=== PATIENT | male | born 1960 | race Caucasian/White ===

== ENCOUNTER 2017-01-19 09:27 | Emergency (ER) | payer OTHER ==
[~2017-01-19 09:27] MED LIST: CELEXA20 M2 PO; CLONAZEPAM1 M2 PO; COMPAZINE10 M PO; EQL FISH OIL 1,1 CA1 PO; GLUCOPHAGE1000 M1 PO; KLONOPIN1 M1 PO; LISINOPRIL10 MG PO; LOSARTAN; LOSARTAN POTASS25 M1 PO; METFORMIN; NOVOLOG MI100 UNITS/ SC; SIMVASTATIN; SIMVASTATIN20 M1 PO; ZOFRAN ODT4 MG/UDTAB PO; [UNRECOGNIZED DRUG - REMARK]
[2017-01-19] MEDS ORDERED: JANUMET XR 50-1 EAC3 PO (09:46)
[2017-01-19] MEDS ORDERED: WELLBUTRIN XL150 M1 PO (09:47)
[2017-01-19] MEDS ORDERED: CEPHALEXIN500 M1 PO (09:56)
== END 2017-01-19 10:31 ==
LOC: EDMED 09:27
DX: L03.115 Cellulitis of right lower limb (principal); E11.9 Type 2 diabetes mellitus without complications; I10 Essential (primary) hypertension; Z79.4 Long term (current) use of insulin

== ENCOUNTER 2017-01-22 10:33 | Inpatient (IN) | payer OTHER ==
[~2017-01-22 10:33] MED LIST changes: +CEPHALEXIN500 M1 PO; +JANUMET XR 50-1 EAC3 PO; +WELLBUTRIN XL150 M1 PO
[2017-01-22 12:15] LABS: BASO % 0.3 % (0-2); EOS % 1.3 % (0-7); EOSINOPHIL ABSOLUTE COUNT 0.2 tho/cmm (0.0-0.7); HCT-HEMATOCRIT 38.7 % (36.0-53.5); HGB-HEMOGLOBIN 13.7 gm/dl (13.5-17.0); IMMATURE GRANULOCYTES ABSOLUTE 0.02 tho/cmm (0-0.03); IMMATURE GRANULOCYTES PERCENT 0.2 % (0-0.3); LYMPH % 11.4 % (20-45); LYMPH ABSOLUTE COUNT 1.3 tho/cmm (0.8-4.5); MCH (MEAN CORPUSCULAR HGB) 29.3 pg (28.0-32.0); MCHC MEAN CORPUSCULAR HGB CONC 35.4 % (32.0-36.0); MCV (MEAN CELL VOLUME) 82.9 fl (82.0-96.0); MEAN PLATELET VOLUME 10.6 cmc (9.4-12.4); MONO % 8.4 % (0-12); NEUTROPHILS % 78.4 % (40-80); PLATELET COUNT 229 tho/cmm (150-450); RED BLOOD COUNT 4.67 mil/cmm (4.40-5.70); RED CELL DISTRIBUTION WIDTH 13.1 % (12.4-16.4); WHITE BLOOD COUNT 11.5 tho/cmm (4.0-10.0)
[2017-01-22 12:21] LABS: URINE LEUKOCYTE ESTERASE NEGATIVE (NEG); URINE PROTEIN SMALL (NEG); URINE SPECIFIC GRAVITY 1.015 (1.003-1.030)
[2017-01-22 12:22] LABS: URINE APPEARANCE CLEAR; URINE BILIRUBIN NEGATIVE (NEG); URINE BLOOD NEGATIVE (NEG); URINE COLOR YELLOW; URINE GLUCOSE (UA) MODERATE (NEG); URINE KETONE SMALL (NEG); URINE NITRITE NEGATIVE (NEG)
[2017-01-22 12:29] LABS: ANION GAP 12 mmol/L (0-20); BLOOD UREA NITROGEN 15 mg/dl (6-24); C-REACTIVE PROTEIN 5.1 mg/dl (0-0.9); CALCIUM 8.7 mg/dl (8.5-10.5); CARBON DIOXIDE-VENOUS 27 mmol/L (22-32); CHLORIDE 100 mmol/l (96-110); CREATININE 0.92 mg/dl (0.60-1.30); GLUCOSE 256 mg/dL (70-110); SODIUM 134 mmol/L (135-145); eGFR VALUE FOR BLACK >90 mL/Min
[2017-01-22 12:32] LABS: POTASSIUM 4.5 mmol/L (3.7-5.1)
[2017-01-22 12:44] LABS: URINE EPITHELIAL CELLS RARE /[HPF] (0-10); URINE RBC 0 /[HPF] (0-5); URINE WBC RARE /[HPF] (0-5)
[2017-01-22] MEDS ORDERED: KEFLEX500 M4 PO (13:07)
[2017-01-22] MEDS ORDERED: NORVASC10 M2 PO (13:10)
[2017-01-22] MEDS ORDERED: LIPITOR40 M1 PO (13:10)
[2017-01-22] MEDS ORDERED: ASPIRIN EC81 MG PO (13:11)
--- NOTE | 2017-01-23 13:14 | NUR ---
1300: CONSENT SIGNED FOR INCISION AND DRAINAGE TO RIGHT FOOT, TIME OUT PERFORMED, PATIENTS FOOD CLEANED BY MD WITH CHLORAHEXADINE, LOCAL ANESTHETIC WITH LIDOCAINE AND EPI, AFTER INCISION, WOUND WAS PACKED WITH SULFAMYLONG SOAKED 4X4 AND KERLIX WRAPPED OVER THE TOP. PATIENT TOLERATED WELL. DENIES PAIN
[2017-01-24] MEDS ORDERED: ADVAIR 100-501 EACH PO (13:58)
[2017-01-25 05:26] LABS: CREATININE 1.15 mg/dl (0.60-1.30); eGFR VALUE FOR BLACK 83 mL/Min
[2017-01-28] MEDS ORDERED: TYLENOL325 M2 PO (11:11)
[2017-01-28] MEDS ORDERED: PERCOCET 5-3251 EACH PO (11:12)
[2017-01-28] MEDS ORDERED: CLEOCIN HCL300 M1 PO (11:12)
== END 2017-01-28 12:17 | DRG 623 ==
LOC: EDMED 10:33 → EMR2 13:45 → 5WE 15:14 → ORW 01-27 15:15 → BURN 01-27 16:05
PROVIDERS: Physician Assistant; ADMIT Internal Medicine
PROC: 5A09357 Assistance with Respiratory Ventilation, Less than 24 Consecutive Hours, Continuous Positive Airway Pressure (ICD-10-PCS; 2017-01-22)
PROC: 0J9Q0ZZ Drainage of Right Foot Subcutaneous Tissue and Fascia, Open Approach (ICD-10-PCS; 2017-01-23)
PROC: 0HRMXK3 Replacement of Right Foot Skin with Nonautologous Tissue Substitute, Full Thickness, External Approach (ICD-10-PCS; principal; 2017-01-27)
PROC: 0JBQ0ZZ Excision of Right Foot Subcutaneous Tissue and Fascia, Open Approach (ICD-10-PCS; 2017-01-27)
DX: E11.621 Type 2 diabetes mellitus with foot ulcer (principal); L02.611 Cutaneous abscess of right foot; L97.519 Non-pressure chronic ulcer of other part of right foot with unspecified severity; E11.52 Type 2 diabetes mellitus with diabetic peripheral angiopathy with gangrene; E66.09 Other obesity due to excess calories; Z68.33 Body mass index [BMI] 33.0-33.9, adult; E78.5 Hyperlipidemia, unspecified; F41.8 Other specified anxiety disorders; Z79.82 Long term (current) use of aspirin
CPT/HCPCS: J1650; J1815; J2250; J2405; J2543; J3010; J3370; J7030; J7050; J7999; Q4100